=== PATIENT | female | born 1950 | race Caucasian/White ===

== ENCOUNTER → 2017-01-13 | Outpatient (CLI) | payer MEDICARE ==
[2014-12-28 16:20] VITALS: BP 129/72
[~2017-01-13] MED LIST: ASPI81TA2 PO; OMEP40CA5 PO; OXYC-323 PO; VIT1TABL32 PO
--- NOTE | 2017-01-13 17:23 | CARD ---
APPROVED REPORT EXAM: Two-dimensional and M-mode echocardiogram with Doppler and color Doppler. Other Information Quality : Average Rhythm : NSR INDICATION Palpitations Dyspnea LV Function:Diastolic 2D DIMENSIONS RVDd2.5 (2.9-3.5cm)Left Atrium(2D)4.0 (1.6-4.0cm) IVSd1.1 (0.7-1.1cm)Aortic Root(2D)3.0 (2.0-3.7cm) LVDd4.5 (3.9-5.9cm)LVOT Diameter2.0 (1.8-2.4cm) PWd1.1 (0.7-1.1cm)LVDs2.7 (2.5-4.0cm) FS (%) 39.2 %SV67.9 ml LVEF(%)65.0 (>50%) Aortic Valve AoV Peak Cornel.145.7cm/sAoV VTI31.7cm AO Peak GR.8.5mmHgLVOT Peak Cornel.101.7cm/s LVOT VTI 25.09cmAO Mean GR.5mmHg NELY (VMAX)2.22jf9KXR (VTI)2.49cm2 Mitral Valve MV E Zudqrqnj68.9cm/sMV DECEL DFYZ220kd MV A Roqemuqx451.4cm/sMV E Mean Gr.3mmHg MV KSY55eyT/A Ratio0.8 MV A Vogqnxhz688hfKZM (PHT)3.10cm2 TDI E/Lateral E'12.5E/Medial E'7.3 Pulmonary Valve PV Peak Zxeympqb01.2cm/sPV Peak Grad.4mmHg RVOT VTI19.8cm Tricuspid Valve TR P. Wvdcrckc777er/sRAP OLOMQBCA0ftKk TR Peak Gr.52veYpBCAC24itPo LEFT VENTRICLE The left ventricle is normal size. There is normal left ventricular wall thickness. Left ventricle sy stolic function is normal. The Ejection Fraction is 65%. There is normal LV segmental wall motion. Th e left ventricular diastolic function and filling is normal for age. There is no ventricular septal d efect visualized. RIGHT VENTRICLE The right ventricle is normal size. The right ventricular systolic function is normal. ATRIA The left atrium size is normal. The right atrium size is normal. The interatrial septum is intact wit h no evidence for an atrial septal defect or patent foramen ovale as noted on 2-D or Doppler imaging. AORTIC VALVE The aortic valve is normal in structure The aortic valve is trileaflet. Doppler and Color Flow reveal ed trace aortic regurgitation. There is no significant aortic valvular stenosis. MITRAL VALVE The mitral valve is normal in structure and function. There is no mitral valve stenosis. Doppler and Color Flow revealed no mitral valve regurgitation noted. TRICUSPID VALVE The tricuspid valve is normal in structure Doppler and Color Flow revealed trace tricuspid regurgitat ion. The PA pressure was estimated at 18 mmHg. There is no tricuspid valve stenosis. PULMONIC VALVE The pulmonic valve is not well visualized. Doppler and Color Flow revealed no pulmonic valvular regur gitation. There is no pulmonic valvular stenosis. GREAT VESSELS The aortic root is normal in size. The IVC is normal in size and collapses >50% with inspiration. PERICARDIAL EFFUSION There is no evidence of significant pericardial effusion. Critical Notification Critical Value: No <Conclusion> Left ventricle systolic function is normal. The Ejection Fraction is 65%. The left atrium size is normal. The right atrium size is normal. Doppler and Color Flow revealed trace aortic regurgitation. Doppler and Color Flow revealed no mitral valve regurgitation noted. Doppler and Color Flow revealed trace tricuspid regurgitation. The PA pressure was estimated at 18 mmHg. The pulmonic valve is not well visualized. There is no evidence of significant pericardial effusion.
--- NOTE | 2017-01-19 09:06 | EKG ---
[facility] [address] [place] [address] Test Date: 2017-01-19 Test Time: 07:00:08 Pat Name: REY SUAREZ Department: Room: Gender: F Technical Document Writer: : [id number] Requested By: JERRY MURRIETA Order Number: [id number] Reading MD: Interpretive Statements
== END | disposition home or self-care (01) ==
LOC: ECHO 08:43
PROVIDERS: ATTEND Internal Medicine Cardiovascular Disease
DX: I51.9 Heart disease, unspecified (principal); I49.9 Cardiac arrhythmia, unspecified; R06.09 Other forms of dyspnea; R61 Generalized hyperhidrosis; R00.2 Palpitations
CPT/HCPCS: 93225; 93306